=== PATIENT | female | born 1965 | race Caucasian/White ===

== ENCOUNTER 2016-05-31 09:04 | Emergency (ER) | payer BC, OTHER ==
[~2016-05-31] VITALS: Ht 172.7 cm; Wt 61.0 kg
[~2016-05-31 09:04] MED LIST: BUSP5 PO; LEVA750T PO; PROZ20CA11 PO
[2016-05-31 09:06] VITALS: BP 136/83; PULSE 86; RESP 20; O2SAT 98
[2016-05-31 09:11] VITALS: TEMP 97.9
--- NOTE | 2016-05-31 09:26 | PD ---
HPI . here for right foot wound/possible infection Chief Complaint: Wound/Suture/Staple Re-Check Time Seen by Provider: 09:26 Travel History International Travel<30 days: No Contact w/Intl Traveler<30days: No Traveled to known affect area: No History of Present Illness HPI 51 -year-old female with history of osteomyelitis of the right foot in 2016 here with complaints of a right foot wound that has been present for the past 2- 3 months. Patient says that she needs pain medications for this foot. She is in the room yelling and cursing asking for Percocets, dilaudid, Demerol, etc. She says, "Come on you gotta give me something. Can I get some pain meds." She has a hx of IV drug use. She tells me she only shoots up dilaudid and if I give her percocet it will work for her pain. She is a patient in the community clinic and has not been seen for this. She denies any fever or chills. She tells me she was sent over from the [facility] to the ED. [facility] Past Medical History Arthritis: No Asthma: No Autoimmune Disease: No Blood Disorders: No Anxiety: Yes Depression: Yes Heart Rhythm Problems: No Cancer: No (awaiting results on cervical cancer screening) Cardiovascular Problems: No High Cholesterol: No Chemotherapy: No Chest Pain: No Congestive Heart Failure: No COPD: No Cerebrovascular Accident: No Diabetes: No Diminished Hearing: No Endocrine: No GERD: No Genitourinary: No Hiatal Hernia: No Immune Disorder: No Kidney Stones: No Musculoskeletal: No Neurologic: Yes Psychiatric: No Reproductive: No Respiratory: No Migraines: No Radiation Therapy: No Renal Failure: No Schizophrenia: Yes Seizures: No Sickle Cell Disease: No Sleep Apnea: No Thyroid Disease: No Ulcer: No ?: Not LMP: May 30, 2016 Menopausal: No : 1 Para: 1 Miscarriage: 0 : 0 Past Surgical History Abdominal Surgery: No AICD: No Arteriovenous Shunt: No Cardiac Surgery: No Ear Surgery: No Endocrine Surgery: No Eye Surgery: No Genitourinary Surgery: No Gynecologic Surgery: No Insulin Pump: No Joint Replacement: No Oral Surgery: No Pacemaker: No Thoracic Surgery: No Tonsillectomy: Yes Other Surgery: Yes Social History Alcohol Use: No (SOCIALLY ) Tobacco Use: Yes (1/2 PPD ) Substance Use: Yes Allergies-Medications (Allergen,Severity, Reaction): Coded Allergies: No Known Allergies (Unverified , 04/02/15) Reported Meds & Prescriptions Reported Meds & Active Scripts Active Prozac (Fluoxetine HCl) 20 Mg Cap 60 Mg PO DAILY Buspar 5 Mg Tab (Buspirone HCl) 5 Mg Tab 5 Mg PO Q8HR Review of Systems General / Constitutional: No: Fever Eyes: No: Visual changes HENT: No: Headaches Cardiovascular: No: Chest Pain or Discomfort Respiratory: No: Shortness of Breath Gastrointestinal: No: Abdominal Pain Genitourinary: No: Dysuria Musculoskeletal: No: Pain Skin: Positive Other (right foot wound ), No Rash Neurologic: No: Weakness Psychiatric: No: Depression Endocrine: No: Polydipsia Hematologic/Lymphatic: No: Easy Bruising Physical Exam Narrative GENERAL: AAO x 3, no acute distress, Well-nourished, well-developed patient. seems to be on some type of stimulant SKIN: Warm and dry. No visible rashes or bruising. right foot with small 1 cm induration that is not fluctuant. Not an abscess. There is no significant erythema, edema, or evidence of overt cellulitis. There is a scabbed over healing wound present that patient appears to be picking it. pain out of proportion to touch HEAD: Normocephalic and atraumatic. EYES: No scleral icterus. No injection or drainage. ENT: No nasal drainage noted. Mucous membranes pink. Airway patent. NECK: Supple, trachea midline. No JVD. CARDIOVASCULAR: Regular rate and rhythm without murmurs, gallops, or rubs. RESPIRATORY: Breath sounds equal bilaterally. No accessory muscle use. No rhonchi or rales. GASTROINTESTINAL: Abdomen soft, non-tender, nondistended. EXTREMITIES: No cyanosis or edema. pulses intact b/l foot. BACK: Nontender without obvious deformity. No CVA tenderness. PSYCH: AAO x 3, normal affect. Data Data Last Documented VS Vital Signs Date Time Temp Pulse Resp B/P Pulse Ox O2 Delivery O2 Flow Rate FiO2 05/31/16 09:11 97.9 05/31/16 09:06 86 20 136/83 98 Room Air MDM Medical Decision Making Medical Screen Exam Complete: Yes Emergency Medical Condition: No Medical Record Reviewed: Yes Differential Diagnosis chronic wound, cellulitis, less likely OM Narrative Course 51 -year-old female with history of osteomyelitis of the right foot in 2016 here with complaints of a right foot wound that has been present for the past 2- 3 months. Patient says that she needs pain medications for this foot. She is in the room yelling and cursing asking for Percocets, dilaudid, Demerol, etc. She says, "Come on you gotta give me something. Can I get some pain meds." She has a hx of IV drug use. She tells me she only shoots up dilaudid and if I give her percocet it will work for her pain. She is a patient in the community clinic and has not been seen for this. She denies any fever or chills. She tells me she was sent [facility] the [facility] to [facility] ED. Prior to me even touching the wound, while I was putting on gloves and leaned in to inspect, patient starts screaming in pain telling me I hurt her foot and she needs pain meds. She started a negotiation for pain meds in the ED in front of my nurse. She tells me she only injects dilaudid so if I give her the other meds she will use them for pain. I've contacted the community clinic and they will see the patient today or tomorrow. A medical screening exam was performed: At the time of evaluation the presenting medical condition was determined not to be of an emergent nature. The patient was given the option of receiving additional care, but declined. Patient was given options for additional community resources from which to obtain care. The Patient Has Been advised to seek medical attention for their presenting complaint. The patient has been advised to return to the ER at any time if an emergent condition develops. Diagnosis Primary Impression: Encounter for medical screening examination Condition: Stable Emani Acuna May 31, 2016 09:26
== END 2016-05-31 09:57 | disposition left against medical advice (07) ==
LOC: NEPK 09:04
DX: S91.301A Unspecified open wound, right foot, initial encounter (principal); F41.8 Other specified anxiety disorders; F17.210 Nicotine dependence, cigarettes, uncomplicated; X58.XXXA Exposure to other specified factors, initial encounter
CPT/HCPCS: 99281

== ENCOUNTER 2016-10-06 13:49 | Emergency (ER) | payer OTHER ==
[~2016-10-06 13:49] MED LIST changes: -LEVA750T PO
[2016-10-06 13:54] VITALS: BP 116/56; PULSE 89; RESP 15; TEMP 98.2; O2SAT 99
--- NOTE | 2016-10-06 14:06 | PD ---
HPI . wants meds Chief Complaint: Pain: Acute or Chronic Time Seen by Provider: 14:00 Travel History International Travel<30 days: No Contact w/Intl Traveler<30days: No Traveled to known affect area: No History of Present Illness HPI 51-year-old female here requesting medications for infection and pain. She says she has lesions on her body and needs antibiotics and she also needs pain meds. She is yelling and shouting telling me she wants medicines for this now. She denies any fever or chills. PFSH Past Medical History Arthritis: No Asthma: No Autoimmune Disease: No Blood Disorders: No Anxiety: Yes Depression: Yes Heart Rhythm Problems: No Cancer: No (awaiting results on cervical cancer screening) Cardiovascular Problems: No High Cholesterol: No Chemotherapy: No Chest Pain: No Congestive Heart Failure: No COPD: No Cerebrovascular Accident: No Diabetes: No Diminished Hearing: No Endocrine: No GERD: No Genitourinary: No Hiatal Hernia: No Immune Disorder: No Kidney Stones: No Musculoskeletal: No Neurologic: Yes Psychiatric: No Reproductive: No Respiratory: No Migraines: No Radiation Therapy: No Renal Failure: No Schizophrenia: Yes Seizures: No Sickle Cell Disease: No Sleep Apnea: No Thyroid Disease: No Ulcer: No Menopausal: No : 1 Para: 1 Miscarriage: 0 : 0 Past Surgical History Abdominal Surgery: No AICD: No Arteriovenous Shunt: No Cardiac Surgery: No Ear Surgery: No Endocrine Surgery: No Eye Surgery: No Genitourinary Surgery: No Gynecologic Surgery: No Insulin Pump: No Joint Replacement: No Oral Surgery: No Pacemaker: No Thoracic Surgery: No Tonsillectomy: Yes Other Surgery: Yes Social History Alcohol Use: No (SOCIALLY ) Tobacco Use: Yes (1/2 PPD ) Substance Use: Yes Allergies-Medications (Allergen,Severity, Reaction): Coded Allergies: No Known Allergies (Unverified , 04/02/15) Reported Meds & Prescriptions Reported Meds & Active Scripts Active Prozac (Fluoxetine HCl) 20 Mg Cap 60 Mg PO DAILY Buspar 5 Mg Tab (Buspirone HCl) 5 Mg Tab 5 Mg PO Q8HR Review of Systems General / Constitutional: No: Fever Eyes: No: Visual changes HENT: No: Headaches Cardiovascular: No: Chest Pain or Discomfort Respiratory: No: Shortness of Breath Gastrointestinal: No: Abdominal Pain Genitourinary: No: Dysuria Musculoskeletal: Positive: Pain Skin: No Rash Neurologic: No: Weakness Psychiatric: No: Depression Endocrine: No: Polydipsia Hematologic/Lymphatic: No: Easy Bruising Physical Exam Narrative GENERAL: AAO x 3, disheveled appearance SKIN: Warm and dry. No visible rashes or bruising. Bilateral feet with 2 small blisters without any evidence of infection. There is no surrounding erythema, edema or purulent drainage. There is no evidence of infection HEAD: Normocephalic and atraumatic. EYES: No scleral icterus. No injection or drainage. ENT: No nasal drainage noted. Mucous membranes pink. Airway patent. NECK: Supple, trachea midline. No JVD. CARDIOVASCULAR: Regular rate and rhythm without murmurs, gallops, or rubs. RESPIRATORY: Breath sounds equal bilaterally. No accessory muscle use. No rhonchi or rales. GASTROINTESTINAL: Visual inspection normal EXTREMITIES: No cyanosis or edema. BACK: Nontender without obvious deformity. No CVA tenderness. NEURO: Grossly intact PSYCH: AAO x 3 Data Data Last Documented VS Vital Signs Date Time Temp Pulse Resp B/P (MAP) Pulse Ox O2 Delivery O2 Flow Rate FiO2 10/06/16 13:54 98.2 89 15 116/56 (76) 99 MDM Medical Decision Making Medical Screen Exam Complete: Yes Emergency Medical Condition: No Medical Record Reviewed: Yes Differential Diagnosis Drug-seeking behavior, malingering, less likely cellulitis Narrative Course A medical screening exam was performed: At the time of evaluation the presenting medical condition was determined not to be of an emergent nature. The patient was given the option of receiving additional care, but declined. Patient was given options for additional community resources from which to obtain care. The Patient Has Been advised to seek medical attention for their presenting complaint. The patient has been advised to return to the ER at any time if an emergent condition develops. I had a discussion with patient explaining to her that these are not active infections. I explained to her that antibiotics are not needed. I also explained that I will not be providing chronic pain medications. Patient became very upset started yelling at me. She then goes on to tell me that she has typhoid and bone cancer and that she needs a place to stay. She was belligerent towards the financial counselor and telling him she did not want to be redirected elsewhere. She was escorted out by security. Diagnosis Primary Impression: Encounter for medical screening examination Condition: Stable Emani Acuna Oct 06, 2016 14:06
== END 2016-10-06 14:19 | disposition left against medical advice (07) ==
LOC: NEPK 13:49
DX: L98.9 Disorder of the skin and subcutaneous tissue, unspecified (principal); F41.9 Anxiety disorder, unspecified; F32.9 Major depressive disorder, single episode, unspecified; F20.9 Schizophrenia, unspecified; F17.200 Nicotine dependence, unspecified, uncomplicated; Z79.899 Other long term (current) drug therapy
CPT/HCPCS: 99281

== ENCOUNTER 2016-10-09 11:03 | Inpatient (IN) | payer OTHER ==
[~2016-10-09] VITALS: Ht 170.2 cm; Wt 61.6 kg
[2016-10-09 11:19] VITALS: BP 118/67; PULSE 58; RESP 16; TEMP 97.3; O2SAT 100
--- NOTE | 2016-10-09 12:12 | PD ---
HPI Chief Complaint: Psychiatric Symptoms Time Seen by Provider: 11:51 Travel History International Travel<30 days: No Contact w/Intl Traveler<30days: No Traveled to known affect area: No History of Present Illness HPI Patient comes in under a Xavier act after being seen by a new provider at and outpatient clinic. Per Xavier act patient has a history of schizoaffective disorder and would like to have substance-induced psychotic disorder ruled out. Per Xavier act patient does cocaine and THC. Per Xavier act patient stated week ago and Sunday she wanted to kill herself. Patient admits to having thoughts of harming herself on Sunday but states she no longer has these thoughts after going to [facility] on Sunday. Patient's only medical concern at this time as possible sinus infection. Patient states she's been having sinus pain and pressure ongoing for approximately a week along with associated sore throat and dry cough that is occasionally productive with phlegm. Patient states she feels like it's getting better but is concerned because it is still there. Patient denies any known fevers, nausea, vomiting or chest pain, abdominal pain, change in bowel or bladder, headache, or numbness or tingling anywhere. PFSH Past Medical History Arthritis: No Asthma: No Autoimmune Disease: No Blood Disorders: No Anxiety: Yes Depression: Yes Heart Rhythm Problems: No Cancer: No (awaiting results on cervical cancer screening) Cardiovascular Problems: No High Cholesterol: No Chemotherapy: No Chest Pain: No Congestive Heart Failure: No COPD: No Cerebrovascular Accident: No Diabetes: No Diminished Hearing: No Endocrine: No GERD: No Genitourinary: No Hiatal Hernia: No Immune Disorder: No Kidney Stones: No Musculoskeletal: No Neurologic: Yes Psychiatric: No Reproductive: No Respiratory: No Migraines: No Radiation Therapy: No Renal Failure: No Schizophrenia: Yes Seizures: No Sickle Cell Disease: No Sleep Apnea: No Thyroid Disease: No Ulcer: No ?: Not LMP: 10/03/16 Menopausal: No : 1 Para: 1 Miscarriage: 0 : 0 Past Surgical History Abdominal Surgery: No AICD: No Arteriovenous Shunt: No Cardiac Surgery: No Ear Surgery: No Endocrine Surgery: No Eye Surgery: No Genitourinary Surgery: No Gynecologic Surgery: No Hysterectomy: No Insulin Pump: No Joint Replacement: No Oral Surgery: No Pacemaker: No Thoracic Surgery: No Tonsillectomy: Yes Other Surgery: Yes Social History Alcohol Use: No (SOCIALLY ) Tobacco Use: Yes (1/2 PPD ) Substance Use: Yes Allergies-Medications (Allergen,Severity, Reaction): Coded Allergies: No Known Allergies (Unverified , 04/02/15) Reported Meds & Prescriptions Reported Meds & Active Scripts Active Prozac (Fluoxetine HCl) 20 Mg Cap 60 Mg PO DAILY Buspar 5 Mg Tab (Buspirone HCl) 5 Mg Tab 5 Mg PO Q8HR Review of Systems Except as stated in HPI: all other systems reviewed are Neg Physical Exam Narrative GENERAL: Well-developed, well nourished, in no acute distress, and non-ill appearing. SKIN: Focused skin assessment warm and dry. HEAD: Atraumatic. Normocephalic. EYES: Pupils equal and round. EOMI. No scleral icterus. No injection or drainage. ENT: No nasal bleeding or discharge. Mucous membranes pink and moist. Tympanic membranes pearly reyes bilaterally. Posterior pharynx nonerythematous without exudate. Uvula is midline. Patient reports tenderness to palpation to all facial sinuses. NECK: Trachea midline. No cervical lymphadenopathy. Supple. No nuclear rigidity. CARDIOVASCULAR: Regular rate and rhythm. No murmur appreciated. RESPIRATORY: No accessory muscle use. No respiratory distress. Clear to auscultation. Breath sounds equal bilaterally. MUSCULOSKELETAL: No obvious deformities. No clubbing. No cyanosis. No edema. Full range of motion. NEUROLOGICAL: Awake and alert. No obvious cranial nerve deficits. Motor grossly within normal limits. Normal speech. PSYCHIATRIC: Appropriate mood and affect; insight and judgment normal. Data Data Last Documented VS Vital Signs Date Time Temp Pulse Resp B/P (MAP) Pulse Ox O2 Delivery O2 Flow Rate FiO2 10/09/16 14:30 88 18 139/68 (91) 98 Room Air 10/09/16 11:19 97.3 Orders Orders Complete Blood Count With Diff (10/09/16 11:51) Comprehensive Metabolic Panel (10/09/16 11:51) Psych Screen (10/09/16 11:51) Drug Screen, Random Urine (10/09/16 11:51) Alcohol (Ethanol) (10/09/16 11:51) Salicylates (Aspirin) (10/09/16 11:51) Tylenol (Acetaminophen) (10/09/16 11:51) Chest, Single Ap (10/09/16 ) Group A Rapid Strep Screen (10/09/16 12:00) Strep Culture (Group A) (10/09/16 12:10) Labs Laboratory Tests Test 10/09/16 12:10 10/09/16 13:40 Urine Opiates Screen NEG Urine Barbiturates Screen NEG Urine Amphetamines Screen NEG Urine Benzodiazepines Screen NEG Urine Cocaine Screen POS Urine Cannabinoids Screen NEG White Blood Count 4.5 TH/MM3 Red Blood Count 3.80 MIL/MM3 Hemoglobin 11.6 GM/DL Hematocrit 34.6 % Mean Corpuscular Volume 91.2 FL Mean Corpuscular Hemoglobin 30.7 PG Mean Corpuscular Hemoglobin Concent 33.6 % Red Cell Distribution Width 13.6 % Platelet Count 222 TH/MM3 Mean Platelet Volume 8.3 FL Neutrophils (%) (Auto) 60.0 % Lymphocytes (%) (Auto) 24.3 % Monocytes (%) (Auto) 10.0 % Eosinophils (%) (Auto) 4.2 % Basophils (%) (Auto) 1.5 % Neutrophils # (Auto) 2.7 TH/MM3 Lymphocytes # (Auto) 1.1 TH/MM3 Monocytes # (Auto) 0.5 TH/MM3 Eosinophils # (Auto) 0.2 TH/MM3 Basophils # (Auto) 0.1 TH/MM3 CBC Comment DIFF FINAL Differential Comment Blood Urea Nitrogen 6 MG/DL Creatinine 0.70 MG/DL Random Glucose 80 MG/DL Total Protein 7.8 GM/DL Albumin 3.5 GM/DL Calcium Level 8.4 MG/DL Alkaline Phosphatase 72 U/L Aspartate Amino Transf (AST/SGOT) 20 U/L Alanine Aminotransferase (ALT/SGPT) 22 U/L Total Bilirubin 0.4 MG/DL Sodium Level 137 MEQ/L Potassium Level 3.6 MEQ/L Chloride Level 106 MEQ/L Carbon Dioxide Level 22.1 MEQ/L Anion Gap 9 MEQ/L Estimat Glomerular Filtration Rate 89 ML/MIN Salicylates Level 4.9 MG/DL Acetaminophen Level LESS THAN 2.0 MCG/ML Ethyl Alcohol Level LESS THAN 3 MG/DL MDM Medical Decision Making Medical Screen Exam Complete: Yes Emergency Medical Condition: Yes Interpretation(s) Chest x-ray read by the radiologist shows: No acute disease. Differential Diagnosis Pneumonia, sinusitis, rhinitis, strep pharyngitis, viral pharyngitis, schizophrenia, homicidal, suicidal, substance induced mood disorder, other Narrative Course Patient was seen and examined. Labs were obtained and reviewed. Patient looks great, non-ill appearing. The patient is tolerating fluids and is well hydrated. Appears acute sinusitis. No clinical evidence by history or evaluation to suspect infection, meningitis and/or sepsis. There was no evidence to suggest deep abscess or cavernous sinus involvement. I discussed with the patient, diagnosis, plan of care, medications and to follow up with the patients primary physician. The patient was instructed to return if the worsens in anyway, especially if not tolerating fluids, increased sinus pain or swelling, worsening headache, persistent fever, difficulty swallowing or breathing, or as needed. The patient agreed with plan. Patient medically cleared for further treatment and evaluation by psych. Final disposition per psych. Diagnosis Primary Impression: Sinusitis Qualified Codes: J01.90 - Acute sinusitis, unspecified Additional Impressions: Medical clearance for psychiatric admission Cocaine abuse Patient Instructions: General Instructions, Sinusitis (ED) Additional Instructions: Follow-up with your primary care physician for reevaluation of your sinuses. Use [id number] Flonase for symptomatic relief. Follow instructions on the package. Return to the emergency department if symptoms get worse. Condition: Stable González Miramontes Oct 09, 2016 12:12
--- NOTE | 2016-10-09 12:35 | RADRPT ---
EXAM DATE/TIME: 10/09/2016 12:14 [facility] COMPARISON: CHEST SINGLE AP, January 08, 2015, 9:48. INDICATIONS : Cough. MEDICAL HISTORY : Dizziness. Schizophrenia. Antecubital abscess SURGICAL HISTORY : Tonsillectomy. ENCOUNTER: Initial ACUITY: 1 day PAIN SCORE: 0/10 LOCATION: Bilateral chest FINDINGS: A single view of the chest demonstrates the lungs to be symmetrically aerated without evidence of mas s, infiltrate or effusion. Moderate gas distention of splenic flexure. The cardiomediastinal contour s are unremarkable. Osseous structures are intact. CONCLUSION: No acute disease. Nguyễn Guo MD FACR on October 09, 2016 at 12:31 Board Certified Radiologist. This report was verified electronically.
[2016-10-09 14:14] LABS: AUTOMATED NEUTROPHIL # 2.7 TH/MM3 (1.8-7.7); BASOPHIL # 0.1 TH/MM3 (0-0.2); BASOPHIL % 1.5 % (0.0-2.0); EOSINOPHIL # 0.2 TH/MM3 (0-0.4); EOSINOPHIL % 4.2 % (0.0-4.0); HEMATOCRIT 34.6 % (35.0-46.0); HEMO FLAGS DIFF FINAL; LYMPH % 24.3 % (9.0-44.0); LYMPHOCYTE # 1.1 TH/MM3 (1.0-4.8); MEAN CELL VOLUME 91.2 FL (80.0-100.0); MEAN CORPUSCULAR HEMOGLOBIN 30.7 PG (27.0-34.0); MEAN CORPUSCULAR HGB CONC 33.6 % (32.0-36.0); PLATELET COUNT 222 TH/MM3 (150-450); RED CELL DISTRIBUTION WIDTH 13.6 % (11.6-17.2); WHITE BLOOD COUNT 4.5 TH/MM3 (4.0-11.0)
[2016-10-09 14:28] LABS: ALT (GPT) 22 U/L (10-53); ANION GAP 9 MEQ/L (5-15); AST (GOT) 20 U/L (15-37); BICARBONATE 22.1 MEQ/L (21.0-32.0); BLOOD UREA NITROGEN 6 MG/DL (7-18); CHLORIDE 106 MEQ/L (98-107); GLOMERULAR FILTRATION RATE 89 ML/MIN (>89); POTASSIUM 3.6 MEQ/L (3.5-5.1); SODIUM (NA) 137 MEQ/L (136-145)
[2016-10-09 14:30] VITALS: BP 139/68; PULSE 88; RESP 18; O2SAT 98
[2016-10-09 14:30] LABS: ALKALINE PHOSPHATASE 72 U/L (45-117); TOTAL BILIRUBIN ADULT 0.4 MG/DL (0.2-1.0)
[2016-10-09 14:38] LABS: ACETAMINOPHEN LESS THAN 2.0 MCG/ML (10.0-30.0); ALCOHOL LESS THAN 3 MG/DL (0-5)
[2016-10-09] MEDS: FLUTICASONE PROPIONATE 50 MCG/ACT 16 GM NASAL SPRAY EACH NARE SCH (18:39)
[2016-10-09 18:48] VITALS: BP 128/85; PULSE 66; RESP 18; O2SAT 100
[2016-10-09 22:00] VITALS: BP 98/63; PULSE 66; RESP 17; O2SAT 65; O2SAT 95
[2016-10-09] MEDS ORDERED: OLANZapine IM 10 MG VIAL IM ONE (23:30)
[2016-10-10 02:09] VITALS: BP 111/56; PULSE 56; RESP 19; O2SAT 96
[2016-10-10 06:10] VITALS: BP 152/68; PULSE 63; RESP 19; O2SAT 97
[2016-10-10] MEDS: FLUTICASONE PROPIONATE 50 MCG/ACT 16 GM NASAL SPRAY EACH NARE SCH (09:55)
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
[2016-10-10] MEDS ORDERED: ALUMINUM/MAGNESIUM/SIMETH 30 ML CUP PO PRN (11:30)
[2016-10-10] MEDS ORDERED: MAGNESIUM HYDROXIDE SUSP 30 ML CUP PO PRN (11:30)
[2016-10-10 12:40] VITALS: BP 119/63; PULSE 46; RESP 19; TEMP 98; O2SAT 100
[2016-10-10] MEDS: NICOTINE 21 MG/24 HR PATCH T-DERMAL SCH (17:09)
[2016-10-10] MEDS: ACETAMINOPHEN 325 MG TAB PO PRN ×2 (17:10→23:34)
[2016-10-10 18:10] VITALS: BP 110/57; PULSE 79; RESP 16; TEMP 98.5; O2SAT 98
[2016-10-10] MEDS: OLANZapine 10 MG TAB PO SCH (20:58)
[2016-10-10] MEDS: FLUoxetine HCL 20 MG CAP PO SCH (20:59)
[2016-10-11 06:17] VITALS: BP 111/56; PULSE 62; RESP 20; TEMP 98; O2SAT 98
[2016-10-11] MEDS: FLUTICASONE PROPIONATE 50 MCG/ACT 16 GM NASAL SPRAY EACH NARE SCH (09:00)
[2016-10-11] MEDS ORDERED: PNEUMOCOCCAL POLYVALENT INJ 25 MCG/0.5 ML SYR IM ONE (09:00)
[2016-10-11] MEDS: NICOTINE 21 MG/24 HR PATCH T-DERMAL SCH (09:13)
[2016-10-11] MEDS: REMOVE OLD PATCH T-DERMAL SCH (09:14)
[2016-10-11] MEDS: FLUoxetine HCL 20 MG CAP PO SCH ×2 (09:14→20:19)
[2016-10-11] MEDS: ACETAMINOPHEN 325 MG TAB PO PRN ×4 (09:41→20:20)
[2016-10-11 10:07] LABS: ANION GAP 8 MEQ/L (5-15); AST (GOT) 17 U/L (15-37); BICARBONATE 27.8 MEQ/L (21.0-32.0); BLOOD UREA NITROGEN 13 MG/DL (7-18); CHLORIDE 104 MEQ/L (98-107); GLOMERULAR FILTRATION RATE 83 ML/MIN (>89); MAGNESIUM 1.8 MG/DL (1.5-2.5); SODIUM (NA) 140 MEQ/L (136-145)
[2016-10-11 10:08] LABS: ALT (GPT) 21 U/L (10-53)
[2016-10-11 10:16] LABS: ALKALINE PHOSPHATASE 85 U/L (45-117); FREE T4 0.77 NG/DL (0.76-1.46); HDL CHOLESTEROL 47.3 MG/DL (40.0-60.0); LDL CHOLESTEROL 114 MG/DL (0-99); TOTAL BILIRUBIN ADULT 0.3 MG/DL (0.2-1.0)
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
[2016-10-11 10:18] LABS: AUTOMATED NEUTROPHIL # 3.1 TH/MM3 (1.8-7.7); BASOPHIL % 0.6 % (0.0-2.0); EOSINOPHIL # 0.2 TH/MM3 (0-0.4); EOSINOPHIL % 4.1 % (0.0-4.0); HEMATOCRIT 37.7 % (35.0-46.0); HEMO FLAGS DIFF FINAL; LYMPH % 22.3 % (9.0-44.0); LYMPHOCYTE # 1.1 TH/MM3 (1.0-4.8); MEAN CELL VOLUME 91.3 FL (80.0-100.0); MEAN CORPUSCULAR HEMOGLOBIN 30.4 PG (27.0-34.0); MEAN CORPUSCULAR HGB CONC 33.4 % (32.0-36.0); MONO % 6.5 % (0.0-8.0); NEUT % 66.5 % (16.0-70.0); PLATELET COUNT 236 TH/MM3 (150-450); RED BLOOD COUNT 4.13 MIL/MM3 (4.00-5.30); WHITE BLOOD COUNT 4.7 TH/MM3 (4.0-11.0)
[2016-10-11 10:22] LABS: HEMOGLOBIN A1a 1.1 %; HEMOGLOBIN A1b 0.7 %; HEMOGLOBIN Ao 86.6 %; HEMOGLOBIN F 0.8 %; HEMOGLOBIN LA1C 1.9 %; HEMOGLOBIN P3 3.3 %
[2016-10-11 16:08] VITALS: BP 112/53; PULSE 70; RESP 20; TEMP 98; O2SAT 100
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
[2016-10-11] MEDS: BENZOCAINE-MENTHOL (SUGAR FREE) 15 MG-3.6 MG LOZENGE BUCCAL PRN ×3 (18:00→22:56)
[2016-10-11] MEDS: OLANZapine 10 MG TAB PO SCH (21:00)
[2016-10-12] MEDS: BENZOCAINE-MENTHOL (SUGAR FREE) 15 MG-3.6 MG LOZENGE BUCCAL PRN ×6 (02:14→20:16)
[2016-10-12] MEDS: ACETAMINOPHEN 325 MG TAB PO PRN ×3 (02:14→20:16)
[2016-10-12 06:01] VITALS: BP 118/58; PULSE 68; RESP 20; TEMP 97.8; O2SAT 98
[2016-10-12] MEDS: FLUoxetine HCL 20 MG CAP PO SCH ×2 (07:36→20:14)
[2016-10-12] MEDS: FLUTICASONE PROPIONATE 50 MCG/ACT 16 GM NASAL SPRAY EACH NARE SCH (07:37)
[2016-10-12] MEDS: NICOTINE 21 MG/24 HR PATCH T-DERMAL SCH (07:37)
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
[2016-10-12] MEDS: REMOVE OLD PATCH T-DERMAL SCH (09:00)
[2016-10-12] MEDS ORDERED: INFLUENZA VIRUS VACCINE (QUADRIVALENT) 0.5 ML SYR IM ONE (10:00)
--- NOTE | 2016-10-12 13:21 | HHI.PYPN ---
Subjective Remarks Patient is seen for follow up, chart reviewed. Patient found eating lunch but was able to engage in interview. Patient states that she is feeling much better and apologizes for not participating more in interview yesterday. Patient states she is feeling "good", denies any perceptual disturbances and states that she usually has auditory hallucinations when she uses drugs. She states that the last time she had AH was prior to admission. Patient states that she feels much better and would like to go home to her boyfriend and son. She states that she plans on attending [facility] and agrees to outpatient rehabilitation (refuses inpatient rehabiitation). Patient denies any depressive symptoms, manic or psychotic symptoms at this time. Patient denies any SI and states that she wants to live for her son, family, boyfriend and hre worship. Review of Systems Except as stated in HPI: all other systems reviewed are Neg Objective Alert: Yes [place]: Person, Place Mood: Calm Affect: Appropriate Memory Intact: Comment (intact) Hallucinations: Other (denies) Delusions: No Delusion Type: Other (denies) Suicidal: Ideation (denies) Homicidal: Ideation (denies) Insight/Judgment limited insight, fair impulse control and judgement Labs labs reviewed Date/Time Source Procedure Growth Status 10/09/16 12:10 Throat Group A Streptococcus Screen - Final NO GP A BETA STREP ISOLATED. Complete Vitals/IOs Vital Signs Date Time Temp Pulse Resp B/P (MAP) Pulse Ox O2 Delivery O2 Flow Rate FiO2 10/12/16 06:01 97.8 68 20 118/58 (78) 98 10/10/16 06:10 Room Air Assessment & Plan Problem List: (1) Unspecified psychosis ICD Codes: F29 - Unspecified psychosis not due to a substance or known physiological condition (2) Cocaine abuse ICD Codes: F14.10 - Cocaine abuse, uncomplicated Status: Acute Assessment & Plan Patient at this time noted to be more organized, linear, no longer appearing to be intoxicated. She admits to having relapsed on cocaine prior to her admission and agrees to rehabilitation program. Restart buspirone 5mg PO TID for anxiety. Patient no longer appears to be intoxicated and no longer endorsing psychotic symptoms which likely was secondary to recent substance use. Discharge planning in progress. Justification for Cont. Inpt. At risk for decompensation if at lower level of care. Burak Frances MD Oct 12, 2016 13:21
[2016-10-12] MEDS: busPIRone HCL 5 MG TAB PO SCH ×2 (14:00→23:40)
--- NOTE | 2016-10-12 14:00 | HHI.PR ---
Addendum To [facility] Progress Not Reason for addendum: Additonal documentation (reviewed vitals and EMR. patient stable will sign off. call PRN.) Candace Arvizu MD Oct 12, 2016 14:00
[2016-10-12 16:29] VITALS: BP 109/59; PULSE 72; RESP 17; TEMP 98.6; O2SAT 100
[2016-10-12] MEDS: OLANZapine 10 MG TAB PO SCH (20:14)
[2016-10-13] MEDS: BENZOCAINE-MENTHOL (SUGAR FREE) 15 MG-3.6 MG LOZENGE BUCCAL PRN ×2 (04:33→08:51)
[2016-10-13] MEDS: ACETAMINOPHEN 325 MG TAB PO PRN (04:33)
[2016-10-13 06:06] VITALS: BP 119/67; PULSE 70; RESP 18; TEMP 98.1; O2SAT 99
[2016-10-13] MEDS: busPIRone HCL 5 MG TAB PO SCH ×2 (06:06→13:25)
[2016-10-13] MEDS: NICOTINE 21 MG/24 HR PATCH T-DERMAL SCH (08:52)
[2016-10-13] MEDS: FLUoxetine HCL 20 MG CAP PO SCH (08:52)
[2016-10-13] MEDS: REMOVE OLD PATCH T-DERMAL SCH (08:52)
[2016-10-13] MEDS: FLUTICASONE PROPIONATE 50 MCG/ACT 16 GM NASAL SPRAY EACH NARE SCH (08:53)
[2016-10-13] MEDS ORDERED: BUSP5TAB PO (08:57)
[2016-10-13] MEDS ORDERED: FLUO20CA12 PO (08:57)
[2016-10-13] MEDS ORDERED: OLAN10TA PO (08:57)
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
== END 2016-10-13 14:10 | disposition home or self-care (01) | DRG 885 ==
LOC: NEDAMB 11:03 → NEDA 10-10 11:25 → H270 10-10 12:35
PROVIDERS: ADMIT Student in an Organized Health Care Education/Training Program; ATTEND Student in an Organized Health Care Education/Training Program
DX: F29 Unspecified psychosis not due to a substance or known physiological condition (principal); F25.9 Schizoaffective disorder, unspecified; R45.851 Suicidal ideations; F32.9 Major depressive disorder, single episode, unspecified; F14.120 Cocaine abuse with intoxication, uncomplicated; F17.210 Nicotine dependence, cigarettes, uncomplicated; J01.90 Acute sinusitis, unspecified; Z91.5 Personal history of self-harm; F41.9 Anxiety disorder, unspecified; Z59.0 Homelessness
CPT/HCPCS: 71010; 80053; 80061; 80307; 83036; 83735; 84100; 84439; 84443; 85025; 87081; 87880; 90732; 96372

== ENCOUNTER 2017-04-06 13:42 | Emergency (ER) | payer OTHER ==
[~2017-04-06 13:42] MED LIST changes: +BUSP5TAB PO; +FLUO20CA12 PO; +OLAN10TA PO
[2017-04-06 13:45] VITALS: BP 108/55; PULSE 77; RESP 18; TEMP 98.6; O2SAT 99
[2017-04-07] MEDS ORDERED: BACT800T5 PO (14:47)
[2017-04-07] MEDS ORDERED: PERM5CRE11 TOPICAL (14:47)
== END 2017-04-06 17:51 | disposition left against medical advice (07) ==
LOC: NED 13:42
DX: T78.40XA Allergy, unspecified, initial encounter (principal); Z53.21 Procedure and treatment not carried out due to patient leaving prior to being seen by health care provider
CPT/HCPCS: 99281

== ENCOUNTER 2017-04-07 14:07 | Emergency (ER) | payer SELFPAY ==
[~2017-04-07] VITALS: Ht 172.7 cm; Wt 65.0 kg
[2017-04-07 14:12] VITALS: BP 114/59; PULSE 71; RESP 12; TEMP 97.4; O2SAT 100
[2017-04-07] MEDS ORDERED: PERM5CRE11 TOPICAL (14:47)
[2017-04-07] MEDS ORDERED: BACT800T5 PO (14:47)
--- NOTE | 2017-04-07 14:48 | PD ---
HPI Chief Complaint: Skin Problem Time Seen by Provider: 14:34 Travel History International Travel<30 days: No Contact w/Intl Traveler<30days: No Traveled to known affect area: No History of Present Illness HPI 52-year-old female presents to emergency room with complaint of rash all over her body that is itchy and has had it for a couple weeks. She denies fever, vomiting. Denies no exposure to lotions, soaps, detergents, perfumes, medications, foods, environmental exposures. Denies airway edema, difficulty breathing, shortness of breath, wheezing. Has not taken any medication or tried any treatments to alleviate her symptoms. No known relieving or aggravating factors. Symptoms are mild in severity. Is requesting a prescription for antibiotics. No primary care provider. Denies significant past medical history. No known allergies. Has no other medical complaints. No other modifying factors or associated signs and symptoms. PFSH Past Medical History Arthritis: No Asthma: No Autoimmune Disease: No Blood Disorders: No Anxiety: Yes Depression: Yes Heart Rhythm Problems: No Cancer: No Cardiovascular Problems: No High Cholesterol: No Chemotherapy: No Chest Pain: No Congestive Heart Failure: No COPD: No Cerebrovascular Accident: No Diabetes: No Diminished Hearing: No Endocrine: No GERD: No Genitourinary: No Headaches: No Hiatal Hernia: No Immune Disorder: No Kidney Stones: No Musculoskeletal: No Neurologic: Yes Psychiatric: Yes (Bipolar Disorder, Schizoaffective Disorder, PTSD, ADD) Reproductive: No Respiratory: No Migraines: No Radiation Therapy: No Renal Failure: No Schizophrenia: Yes Seizures: No Sickle Cell Disease: No Sleep Apnea: No Thyroid Disease: No Ulcer: No Menopausal: No : 1 Para: 1 Miscarriage: 0 : 0 Past Surgical History Abdominal Surgery: No AICD: No Arteriovenous Shunt: No Cardiac Surgery: No Ear Surgery: No Endocrine Surgery: No Eye Surgery: No Genitourinary Surgery: No Gynecologic Surgery: No Hysterectomy: No Insulin Pump: No Joint Replacement: No Oral Surgery: No Pacemaker: No Thoracic Surgery: No Tonsillectomy: Yes Other Surgery: Yes Social History Alcohol Use: No (SOCIALLY ) Tobacco Use: Yes (/2 PPD ) Substance Use: Yes (COCAINE AND MARIJUANA) Allergies-Medications (Allergen,Severity, Reaction): Coded Allergies: No Known Allergies (Unverified Adverse Reaction, Unknown, 04/07/17) Reported Meds & Prescriptions Reported Meds & Active Scripts Active Elimite Topical (Permethrin) 5% Cream 1 Applic TOPICAL ONCE Bactrim DS (Sulfamethoxazole-Trimethoprim) 800-160 Mg Tab 1 Tab PO BID 7 Days Buspirone (Buspirone HCl) 5 Mg Tab 5 Mg PO Q8HR 30 Days Olanzapine 10 Mg Tab 10 Mg PO HS 30 Days Fluoxetine (Fluoxetine HCl) 20 Mg Capsule 20 Mg PO BID 30 Days Review of Systems Except as stated in HPI: all other systems reviewed are Neg Physical Exam Narrative GENERAL: Well-nourished, well-developed patient, in no acute distress ; afebrile, nontoxic-appearing SKIN: Warm and dry. Generalized erythremic pimple-like rash to chest, abdomen, back, bilateral upper extremity, bilateral lower extremities, buttocks; some areas appear excoriated. No areas with cellulitic process noted. HEAD: Atraumatic. Normocephalic. EYES: Pupils equal and round. No scleral icterus. No injection or drainage. ENT: Mucosa pink and moist. Airway patent. NECK: Trachea midline. CARDIOVASCULAR: Regular rate. RESPIRATORY: No accessory muscle use. GASTROINTESTINAL: Flat. MUSCULOSKELETAL: No obvious deformities. No clubbing. No cyanosis. No edema. NEUROLOGICAL: Awake and alert. Oriented 3. No obvious cranial nerve deficits. Motor grossly within normal limits. Normal speech. PSYCHIATRIC: Appropriate mood and affect; insight and judgment normal. Data Data Last Documented VS Vital Signs Date Time Temp Pulse Resp B/P (MAP) Pulse Ox O2 Delivery O2 Flow Rate FiO2 04/07/17 14:12 97.4 71 12 114/59 (77) 100 Room Air Orders Orders Ed Discharge Order (04/07/17 14:48) [facility] Medical Decision Making Medical Screen Exam Complete: Yes Emergency Medical Condition: Yes Medical Record Reviewed: Yes Differential Diagnosis Scabies, contact dermatitis, bedbugs, rash Narrative Course 52-year-old female physical exam consistent with scabies rash. Patient is afebrile and nontoxic-appearing. Denies fever, vomiting. Patient is requesting antibiotics. I did discuss with the patient that antibiotics are not necessary for this rash. She wants a prescription for antibiotics. I will provide the patient with an antibiotics as requested. Bactrim and Elimite cream prescribed for home. Instructed patient to follow up with primary care provider. Patient verbalizes understanding and agreement with treatment plan. Patient is medically cleared and stable for discharge. Discussed reasons to return to the emergency department. Patient agrees with treatment plan. The patients vital signs are stable and the patient is stable for outpatient follow- up and treatment. Patient discharged home, stable and in no acute distress. Diagnosis Primary Impression: Scabies Referrals: [facility] Manager Primary Care Physician Patient Instructions: General Instructions, Scabies (ED) Additional Instructions: Elimite cream as directed; repeat in one week as needed Soaking in cool water or apply cool, wet washcloths to irritated areas to minimize itching Apply anti-itch creams, such as calamine lotion, to relieve pain and itching as needed [id number] antihistamines as needed and as directed to relieve allergic symptoms caused by scabies Wash all pillows, linens, blankets, etc. in hot water and dry in hot dryer Bag and all unwashable linens, [place] stuffed animals, etc. in a tightly sealed garbage bag for up to 2 weeks Follow-up with government minister Follow-up with primary care provider Return to the emergency department immediately with worsening of symptoms Med/Other Pt SpecificInfo: Prescription(s) given Scripts Permethrin Topical (Elimite Topical) 5% Cream 1 APPLIC TOPICAL ONCE for Scabies, #1 TUBE 0 Refills Prov: Nati Bills 04/07/17 Sulfamethoxazole-Trimethoprim (Bactrim DS) 800-160 Mg Tab 1 TAB PO BID for Infection for 7 Days, #14 TAB 0 Refills Prov: Nati Bills 04/07/17 Disposition: 01 DISCHARGE HOME Condition: Stable Nati Bills Apr 07, 2017 14:48
== END 2017-04-07 15:20 | disposition home or self-care (01) ==
LOC: NEPD 14:07
DX: B86 Scabies (principal)
CPT/HCPCS: 99283